=== PATIENT | female | born 1980 | race Caucasian/White ===

== ENCOUNTER 2019-12-01 07:49 | Outpatient (CLI) | payer OTHER, SELFPAY ==
--- NOTE | ~2019-12-01 | US_ITS ---
EXAMINATION: US abdomen complete DATE: 12/01/2019 09:46 INDICATION: Unspecified epigastric pain TECHNIQUE: Multiple grayscale and Doppler ultrasound images of the abdomen were obtained. COMPARISON: 08/02/2018 FINDINGS: The head, body, and tail of the pancreas are normal. The liver is normal with normal echog enicity and echotexture. No surface nodularity. Normal hepatopetal flow in the main portal vein. The gallbladder is normal with no abnormal wall thickening, pericholecystic fluid or stones. The normal c ommon bile duct measures 4 mm. There was no sonographic Martinez sign. The visualized portions of the a aditya and inferior vena cava are normal. The right kidney measures 9.8 x 5.5 x 5.2 cm. The left kidney measures 9.2 x 4.1 x 5.9 cm and contain s a 9 mm cyst in the upper pole. The kidneys demonstrate normal parenchymal echogenicity. There is no hydronephrosis. The spleen is normal in appearance and measures 10 cm. IMPRESSION: 1. No sonographic correlate for the patient's symptoms. Reviewed, dictated and finalized at location A.
== END 2019-12-01 07:50 | disposition home or self-care (01) ==
LOC: ANHIMG 07:54
PROVIDERS: PCP Family Medicine; Visit Provider Nurse Practitioner Family
DX: R10.9 Unspecified abdominal pain (principal)
CPT/HCPCS: 76700

== ENCOUNTER 2019-12-03 17:26 | Outpatient (CLI) | payer OTHER, SELFPAY ==
--- NOTE | ~2019-12-03 | CT_ITS ---
EXAMINATION: CT abdomen pelvis wo con EXAM DATE: 12/03/2019 18:13 INDICATION: Hematuria, flank pain. TECHNIQUE: Spiral CT of the abdomen and pelvis was performed without contrast. Axial, coronal and s agittal images were reviewed. The dose-length product (DLP) for this examination was 201.99 mGy-cm. The exposure was tailored according to patient size (auto mA exposure control), and iterative recons truction (ASIR) was used as additional dose reduction technique. Comparison is made to prior examinat ion from 08/22/2017. FINDINGS: The liver, spleen, adrenal glands and pancreas are unremarkable. Gallbladder is unremarkab le. No biliary obstruction. There is no nephrolithiasis or hydronephrosis. The uterus and ovaries are unremarkable, no adnexal mass. The bladder is undistended at time of imaging. There is no retr operitoneal or pelvic lymphadenopathy. The appendix is normal. The stomach and small bowel are unremarkable. There is expected amount of c olonic stool. No free intraperitoneal gas. The heart is normal in size. There are no pericardial or pleural effusions. The lung bases are unremarkable. The bones are unremarkable. IMPRESSION: 1. No acute intra-abdominal findings. Reviewed, dictated and finalized at location A.
== END 2019-12-03 17:27 | disposition home or self-care (01) ==
LOC: ANHIMG 17:28
PROVIDERS: PCP Family Medicine; Visit Provider Family Medicine
DX: R10.9 Unspecified abdominal pain (principal); R31.9 Hematuria, unspecified
CPT/HCPCS: 74176

== ENCOUNTER → 2020-05-12 15:41 | Outpatient (CLI) | payer OTHER, SELFPAY ==
--- NOTE | ~2020-05-12 | CT_ITS ---
EXAMINATION: CT sinus wo con DATE: 05/12/2020 15:51 INDICATION: Chronic sinusitis TECHNIQUE: Computed tomography (CT) of the paranasal sinuses was performed without contrast. Iterativ e reconstruction technique was employed. Exam dose: 297.70 mGy-cm total exam DLP. COMPARISON: None FINDINGS: The nasal septum bows rightward superiorly and leftward inferiorly. Bilateral surgical nasal antral windows. Interlamellar cell of both middle nasal turbinates. The frontal and sphenoid sinuses are clear. There is an opacified posterolateral left ethmoid air juan m l. The left ethmoid sinuses are otherwise unremarkable. There is an up to approximately 1.7 x 2.3 cm polyp or mucous retention cyst at the floor of the right maxillary sinus. There is focal soft tissue swelling of the right maxillary ostium. There is an approximately 9.5 x 15 mm polyp or mucous retention cyst of the upper medial left maxilla ry sinus wall at the left maxillary ostium. There is mild mucoperiosteal thickening in the lower left maxillary sinus. The mastoid air cells are normally developed and aerated. IMPRESSION: Bilateral nasal antral windows Interlamellar cell of both middle nasal turbinates Bilateral maxillary sinus polyps and/or mucous retention cysts, occlusion of maxillary ostium bilater ally Small opacified left ethmoid air cell Reviewed, dictated and finalized at Location A. Reviewed, dictated and finalized at location A. IMPRESSION: Bilateral nasal antral windows Interlamellar cell of both middle nasal turbinates Bilateral maxillary sinus polyps and/or mucous retention cysts, occlusion of ma xillary ostium bilaterally Small opacified left ethmoid air cell
== END ==
PROVIDERS: Visit Provider Otolaryngology
DX: J32.9 Chronic sinusitis, unspecified (principal)
CPT/HCPCS: 70486

== ENCOUNTER 2020-08-07 09:29 | Outpatient (CLI) | payer OTHER, SELFPAY ==
[2020-08-07 10:04] LABS: Basophils Percent Auto 0.4 % (0.2-1.2); Eosinophils Absolute Auto 0.1 K/mm3 (0-0.3); Eosinophils Percent Auto 0.5 % (0-4.4); Hematocrit 45.5 % (37.0-47.0); Hemoglobin 15.3 g/dL (12.0-15.0); Immature Granulocyte Absolute 0.09 K/mm3 (0.00-0.031); Immature Granulocyte Percent A 0.8 % (0-0.5); Lymphocytes Percent Auto 26.4 % (18.3-44.2); Mean Corpuscular HGB Conc 33.6 g/dl (32-36); Mean Corpuscular Hemoglobin 31.3 pg (26-34); Mean Platelet Volume 9.4 fl (7.4-10.4); Monocytes Absolute Auto 0.8 K/mm3 (0.1-0.6); Monocytes Percent Auto 7.7 % (2.6-8.5); Neutrophils Absolute Auto 6.8 K/mm3 (1.3-6.7); Neutrophils Percent Auto 64.2 % (45.5-73.1); Platelet Count Result 264 k/mm3 (150-375); Red Blood Count 4.89 M/mm3 (4.2-5.4); Red Cell Distribution Width 12.3 % (11.5-14.5); White Blood Count 10.6 K/mm3 (4.5-10.0)
[2020-08-07 11:17] LABS: Vitamin D 25 Hydroxy 70.9 ng/mL
== END 2020-08-07 09:30 | disposition home or self-care (01) ==
LOC: ANHLAB 09:34
PROVIDERS: Physician Assistant Medical; PCP Family Medicine; Visit Provider Nurse Practitioner Family
DX: J32.2 Chronic ethmoidal sinusitis (principal); R51.9 Headache, unspecified; E55.9 Vitamin D deficiency, unspecified
CPT/HCPCS: 36415; 82306; 85025

== ENCOUNTER 2020-08-23 12:55 | Outpatient (CLI) | payer OTHER, SELFPAY ==
[2020-08-23 13:11] LABS: Basophils Percent Auto 0.5 % (0.2-1.2); Eosinophils Absolute Auto 0.1 K/mm3 (0-0.3); Eosinophils Percent Auto 1.4 % (0-4.4); Hematocrit 40.8 % (37.0-47.0); Hemoglobin 13.6 g/dL (12.0-15.0); Immature Granulocyte Absolute 0.02 K/mm3 (0.00-0.031); Immature Granulocyte Percent A 0.3 % (0-0.5); Lymphocytes Absolute Auto 2.24 K/mm3 (0.9-3.2); Lymphocytes Percent Auto 33.7 % (18.3-44.2); Mean Corpuscular HGB Conc 33.3 g/dl (32-36); Mean Corpuscular Hemoglobin 30.8 pg (26-34); Mean Corpuscular Volume 92.3 fl (80-100); Mean Platelet Volume 9.3 fl (7.4-10.4); Monocytes Absolute Auto 0.4 K/mm3 (0.1-0.6); Monocytes Percent Auto 6.2 % (2.6-8.5); Neutrophils Absolute Auto 3.9 K/mm3 (1.3-6.7); Neutrophils Percent Auto 57.9 % (45.5-73.1); Platelet Count Result 227 k/mm3 (150-375); Red Blood Count 4.42 M/mm3 (4.2-5.4); Red Cell Distribution Width 12.4 % (11.5-14.5); White Blood Count 6.7 K/mm3 (4.5-10.0)
== END 2020-08-23 12:56 | disposition home or self-care (01) ==
LOC: ANHLAB 12:56
PROVIDERS: PCP Family Medicine; Visit Provider Physician Assistant Medical
DX: D72.829 Elevated white blood cell count, unspecified (principal)
CPT/HCPCS: 36415; 85025

== ENCOUNTER 2021-08-11 16:38 | Emergency (ER) | payer OTHER, SELFPAY ==
[2021-08-11 16:51] VITALS: BP 125/71; PULSE 85; RESP 16; TEMP 36.8; O2SAT 97
--- NOTE | 2021-08-11 18:14 | ED.URI ---
HPI - URI/Sore Throat General Chief Complaint: Upper Respiratory Infection Stated Complaint: Congestion Time Seen by Provider: 08/11/21 18:14 Source: patient, RN notes reviewed and old records reviewed Mode of arrival: ambulatory Limitations: no limitations History of Present Illness HPI Narrative: 40 year old female who presents to [facility] care with complaints of sore throat with spots in her throat, sinus problems and cough. Patient reports that she had virtual visit with doctors office yesterday and they ordered some cough pills and a steroid back. Patient states that she has not had a fever, chills or sweats, no body aches. Patient has had feelings of sinus congestion and drainage for 1.5 weeks with sore throat starting 3 days ago with spots noted to her throat yesterday. Patient has had Covid and influenza vaccines. MD elicited complaint: cough, sore throat, rhinorrhea, nasal congestion and sinus pain Pertinent past history: sinusitis and seasonal allergies Related Data Home Medications Medication Instructions Recorded Confirmed baclofen 10 mg PO DAILY 08/11/21 08/11/21 benzonatate 100 mg PO DIRECTED 08/11/21 08/11/21 methylprednisolone 4 mg PO DIRECTED 08/11/21 08/11/21 milnacipran [Savella] 1 ea PO DIRECTED 08/11/21 08/11/21 montelukast 10 mg PO DAILY 08/11/21 08/11/21 Allergies Allergy/AdvReac Type Severity Reaction Status Date / Time celecoxib Allergy Unknown Unknown Verified 08/11/21 17:39 codeine Allergy Unknown Unknown Verified 08/11/21 17:39 nabumetone Allergy Unknown Unknown Verified 08/11/21 17:39 Review of Systems Review of Systems: CONSTITUTIONAL: Denies fever, chills, or sweats. EYES: Denies visual changes, redness, or discharge. ENT: Positive rhinorrhea, congestion, sore throat, no otalgia. CARDIOVASCULAR: Denies chest pain, palpitations, or edema. RESPIRATORY: Positive for intermittent cough no dyspnea. GASTROINTESTINAL: Denies abdominal pain, nausea, vomiting, or diarrhea. GENITOURINARY: Denies dysuria or hematuria. SKIN: Denies rash or itching. MUSCULOSKELETAL: Denies back pain, joint pain, or myalgia. NEUROLOGIC: Denies headache, numbness, or weakness. PSYCHIATRIC: Positive for history anxiety or depression. All systems reviewed & are unremarkable except as noted in HPI and below PMFSH Past Medical History Medical History Acute cystitis without hematuria Acute UTI Anxiety Atypical chest pain B12 deficiency Bacterial vaginosis Bartholin gland cyst Bilateral ovarian cysts Brittle hair Cervical paraspinal muscle spasm Cervicalgia Change in color of pigmented skin lesion Chest pain Chronic Jem-Graham virus infection Chronic fatigue Chronic left shoulder pain Chronic left-sided thoracic back pain Current mild episode of major depressive disorder without prior episode Cyst of left kidney Decreased dorsalis pedis pulse Diffuse abdominal pain Dizziness Ectopic 2002 Elevated liver function tests Encounter for gynecological examination (general) (routine) without abnormal findings Encounter for screening for malignant neoplasm of cervix Epigastric abdominal pain Facial swelling Fever and chills Hot flashes Impacted ear wax Influenza Intractable migraine without aura and with status migrainosus Labial cyst Left arm pain Left ear pain Left hip pain Left leg numbness Low TSH level Lumbar back pain with radiculopathy affecting lower extremity Lump of breast Lymphadenopathy of head and neck region Mid back pain Mucous retention cyst Other chronic pain Other headache syndrome Other specified bacterial agents as the cause of diseases classified elsewhere Palpitations Rib pain on left side Sebaceous cyst Skin tag Slow transit constipation Spinal instability, thoracic Suspected exposure to mold Thoracic outlet syndrome of left thoracic outlet Thoracic outlet syndrome of left thoracic outlet TMJ (temporomandibular joint sy
== END 2021-08-11 18:48 | disposition home or self-care (01) ==
PROVIDERS: Emergency Provider Registered Nurse
DX: J02.9 Acute pharyngitis, unspecified (principal); J06.9 Acute upper respiratory infection, unspecified; F17.210 Nicotine dependence, cigarettes, uncomplicated
CPT/HCPCS: 81003; 87081; 87880; 99213; G0463

== ENCOUNTER 2022-04-21 10:46 | Emergency (ER) | payer OTHER, SELFPAY ==
--- NOTE | ~2022-04-21 | XR_ITS ---
EXAMINATION: XR ankle RT min 3V, XR foot RT min 3V DATE: 04/21/2022 11:07 INDICATION: Right ankle injury with lateral right ankle and plantar foot right foot pain. TECHNIQUE: 1. Anteroposterior, mortise, additional oblique and lateral view of the right ankle were obtained. 2. Dorsoplantar, two oblique and lateral views of the right foot were obtained. COMPARISON: None. FINDINGS: Alignment of the right foot and ankle is normal. No fracture or osteochondral lesion. Joint spaces ar e well maintained. No ankle joint effusion. The soft tissues are unremarkable. IMPRESSION: 1. Negative right foot and ankle radiographs. Reviewed, dictated and finalized at location A. IMPRESSION: 1. Negative right foot and ankle radiographs.
[2022-04-21 10:55] VITALS: BP 136/85; PULSE 87; RESP 16; TEMP 36.7; O2SAT 100
--- NOTE | 2022-04-21 11:23 | ED.LOWEXIN ---
HPI - Extremity Injury (Lower) General Chief Complaint: Extremity Injury, Lower Stated Complaint: rt foot pain Time Seen by Provider: 04/21/22 11:23 Source: patient, RN notes reviewed and old records reviewed Mode of arrival: ambulatory Limitations: no limitations History of Present Illness HPI Narrative: 41-year-old female who presents to [facility] care with complaints of right foot pain and right ankle discomfort since Tuesday when she slipped in yard and rolled her ankle and foot inward. Patient reports discomfort lateral and medial aspect of her right ankle radiating to plantar aspect of her foot and also some heel discomfort.Patient denies any numbness or tingling to her right foot or toes. Patient has been wearing an yeny wrap to her foot which she states she thinks has helped along with application of ice pack. MD complaint: ankle injury and other (foot) Treatments prior to arrival: cold therapy and other (yeny) Related Data Home Medications Medication Instructions Recorded Confirmed montelukast 10 mg tablet 10 mg PO DAILY 08/11/21 04/21/22 duloxetine 30 mg capsule,delayed 30 mg PO DAILY 04/21/22 04/21/22 release Allergies Allergy/AdvReac Type Severity Reaction Status Date / Time celecoxib Allergy Unknown Unknown Verified 04/21/22 11:21 codeine Allergy Unknown Unknown Verified 04/21/22 11:21 nabumetone Allergy Unknown Unknown Verified 04/21/22 11:21 Review of Systems Review of Systems: CONSTITUTIONAL: Denies fever, chills, or sweats. EYES: Denies visual changes, redness, or discharge. ENT: Denies rhinorrhea, congestion, sore throat, or otalgia. CARDIOVASCULAR: Denies chest pain, palpitations, or edema. RESPIRATORY: Denies cough or dyspnea. GASTROINTESTINAL: Denies abdominal pain, nausea, vomiting, or diarrhea. GENITOURINARY: Denies dysuria or hematuria. SKIN: Denies rash or itching. MUSCULOSKELETAL: Denies back pain, positive right foot and ankle joint pain, or myalgia. NEUROLOGIC: Denies headache, numbness, or weakness. PSYCHIATRIC: Denies anxiety or depression. All systems reviewed & are unremarkable except as noted in HPI and below PMFSH Past Medical History Medical History Acute cystitis without hematuria Acute UTI Anxiety Atypical chest pain B12 deficiency Bacterial vaginosis Bartholin gland cyst Bilateral ovarian cysts Brittle hair Cervical paraspinal muscle spasm Cervicalgia Change in color of pigmented skin lesion Chest pain Chronic Jem-Graham virus infection Chronic fatigue Chronic left shoulder pain Chronic left-sided thoracic back pain Current mild episode of major depressive disorder without prior episode Cyst of left kidney Decreased dorsalis pedis pulse Diffuse abdominal pain Dizziness Ectopic 2002 Elevated liver function tests Encounter for gynecological examination (general) (routine) without abnormal findings Encounter for screening for malignant neoplasm of cervix Epigastric abdominal pain Facial swelling Fever and chills Hot flashes Impacted ear wax Influenza Intractable migraine without aura and with status migrainosus Labial cyst Left arm pain Left ear pain Left hip pain Left leg numbness Low TSH level Lumbar back pain with radiculopathy affecting lower extremity Lump of breast Lymphadenopathy of head and neck region Mid back pain Mucous retention cyst Other chronic pain Other headache syndrome Other specified bacterial agents as the cause of diseases classified elsewhere Palpitations Rib pain on left side Sebaceous cyst Skin tag Slow transit constipation Spinal instability, thoracic Suspected exposure to mold Thoracic outlet syndrome of left thoracic outlet Thoracic outlet syndrome of left thoracic outlet TMJ (temporomandibular joint syndrome) Tooth pain TOS (thoracic outlet syndrome) 2020 Unspecified ovarian cyst, left side URI, acute Vaginal delivery x2 01/22/2012, 08/18/2007 Viral warts Vulvar
== END 2022-04-21 11:45 | disposition home or self-care (01) ==
PROVIDERS: Emergency Provider Registered Nurse
DX: S93.401A Sprain of unspecified ligament of right ankle, initial encounter (principal); S93.601A Unspecified sprain of right foot, initial encounter; S96.911A Strain of unspecified muscle and tendon at ankle and foot level, right foot, initial encounter; X50.9XXA Other and unspecified overexertion or strenuous movements or postures, initial encounter; F17.210 Nicotine dependence, cigarettes, uncomplicated
CPT/HCPCS: 73610; 73630; 99213; G0463

== ENCOUNTER 2022-08-02 08:07 | Emergency (ER) | payer OTHER, SELFPAY ==
--- NOTE | 2022-08-02 08:10 | ED.URI ---
HPI - URI/Sore Throat General Stated Complaint: Cough/Wheezing Time Seen by Provider: 08/02/22 08:17 Source: patient, RN notes reviewed and old records reviewed Mode of arrival: ambulatory Limitations: no limitations History of Present Illness HPI Narrative: 41-year-old female presents to the [facility] with complaints of cough and wheezing S started a couple of days ago. Patient states that whenever she gets sinus infection sometimes turns into a bronchitis. Denies fevers, chest pain. Patient states that she uses Flonase and takes Zyrtec daily. Just finished Augmentin yesterday. Related Data Home Medications Medication Instructions Recorded Confirmed montelukast 10 mg tablet 10 mg PO DAILY 08/11/21 08/02/22 duloxetine 30 mg capsule,delayed 30 mg PO DAILY 04/21/22 08/02/22 release fluticasone propionate 50 2 spray intranasal DAILY 08/02/22 08/02/22 mcg/actuation nasal spray,suspension phentermine 37.5 mg capsule 37.5 mg PO DAILY 08/02/22 08/02/22 tizanidine 4 mg tablet 4 mg PO DAILY 08/02/22 08/02/22 Allergies Allergy/AdvReac Type Severity Reaction Status Date / Time celecoxib Allergy Unknown Unknown Verified 08/02/22 08:11 codeine Allergy Unknown Unknown Verified 08/02/22 08:11 nabumetone Allergy Unknown Unknown Verified 08/02/22 08:11 Review of Systems Review of Systems: All systems reviewed & are unremarkable except as noted in HPI and below Constitutional: Constitutional: Reports no additional constitutional complaints Eyes: Eyes: Reports no additional eye complaints ENT: Reports system reviewed and no additional complaints, except as documented Cardiovascular: Cardiovascular: Reports no additional cardiovascular complaints, Denies chest pain and Denies dyspnea Respiratory: Respiratory: Reports as per HPI, Denies chest congestion, Reports cough, Denies dyspnea and Reports wheezing Gastrointestinal: Gastrointestinal: Reports no additional gastrointestinal complaints, Denies abdominal pain, Denies nausea and Denies vomiting Musculoskeletal: Musculoskeletal: Reports no additional musculoskeletal complaints Integumentary/Breasts: Skin/Breast: Reports system reviewed and no additional complaints, except as docu Neurologic: Reports system reviewed and no additional complaints, except as documented Psychiatric: Psychiatric: Reports no additional psychiatric complaints Allergic/Immunologic: Allergic/Immunologic: Reports no additional allergic/immunologic complaints PMFSH Past Medical History Medical History Acute cystitis without hematuria Acute UTI Anxiety Atypical chest pain B12 deficiency Bacterial vaginosis Bartholin gland cyst Bilateral ovarian cysts Brittle hair Cervical paraspinal muscle spasm Cervicalgia Change in color of pigmented skin lesion Chest pain Chronic Jem-Graham virus infection Chronic fatigue Chronic left shoulder pain Chronic left-sided thoracic back pain Current mild episode of major depressive disorder without prior episode Cyst of left kidney Decreased dorsalis pedis pulse Diffuse abdominal pain Dizziness Ectopic 2002 Elevated liver function tests Encounter for gynecological examination (general) (routine) without abnormal findings Encounter for screening for malignant neoplasm of cervix Epigastric abdominal pain Facial swelling Fever and chills Hot flashes Impacted ear wax Influenza Intractable migraine without aura and with status migrainosus Labial cyst Left arm pain Left ear pain Left hip pain Left leg numbness Low TSH level Lumbar back pain with radiculopathy affecting lower extremity Lump of breast Lymphadenopathy of head and neck region Mid back pain Mucous retention cyst Other chronic pain Other headache syndrome Other specified bacterial agents as the cause of diseases classified elsewhere Palpitations Rib pain on left side Sebaceous cyst Skin tag Slow transit constipation Spi
[2022-08-02 08:13] VITALS: BP 130/87; PULSE 84; RESP 16; TEMP 36.3; O2SAT 100
== END 2022-08-02 08:33 | disposition home or self-care (01) ==
PROVIDERS: Emergency Provider Nurse Practitioner
DX: J40 Bronchitis, not specified as acute or chronic (principal); F17.210 Nicotine dependence, cigarettes, uncomplicated
CPT/HCPCS: 99213; G0463

== ENCOUNTER 2022-10-23 08:16 | Emergency (ER) | payer OTHER, SELFPAY ==
[2022-10-23 08:25] VITALS: BP 132/83; PULSE 83; RESP 12; TEMP 36.9; O2SAT 99
--- NOTE | 2022-10-23 08:41 | ED.URI ---
HPI - URI/Sore Throat General Chief Complaint: Upper Respiratory Infection Stated Complaint: Sinus Time Seen by Provider: 10/23/22 08:41 Source: patient Mode of arrival: ambulatory Limitations: no limitations History of Present Illness HPI Narrative: Patient is a 41-year-old female that presents with sinus congestion, ear pain, cough for 3 weeks. patient states she was seen by her primary but did not get antibiotics. has tried Flonase and Zyrtec with no relief Related Data Home Medications Medication Instructions Recorded Confirmed montelukast 10 mg tablet 10 mg PO DAILY 08/11/21 10/23/22 fluticasone propionate 50 2 spray intranasal DAILY 08/02/22 10/23/22 mcg/actuation nasal spray,suspension tizanidine 4 mg tablet 4 mg PO DAILY 08/02/22 10/23/22 Allergies Allergy/AdvReac Type Severity Reaction Status Date / Time celecoxib Allergy Unknown Unknown Verified 10/23/22 08:34 codeine Allergy Unknown Unknown Verified 10/23/22 08:34 nabumetone Allergy Unknown Unknown Verified 10/23/22 08:34 Review of Systems Review of Systems: All systems reviewed & are unremarkable except as noted in HPI and below Constitutional: Constitutional: Denies body ache(s), Denies fever(s), Denies headache(s), Denies malaise and Denies weakness Eyes: Eyes: Denies loss of vision ENT: Denies headache(s), Reports nasal congestion, Denies sinus pain and Denies sore throat Cardiovascular: Cardiovascular: Denies chest pain, Denies irregular heart rhythm and Denies dyspnea Respiratory: Respiratory: Reports cough and Denies dyspnea Gastrointestinal: Gastrointestinal: Denies abdominal pain, Denies melena, Denies hematochezia, Denies diarrhea, Denies nausea and Denies vomiting Musculoskeletal: Musculoskeletal: Denies back pain, Denies myalgias and Denies arthralgias Integumentary/Breasts: Skin/Breast: Denies pruritus and Denies rash Neurologic: Denies headache(s), Denies loss of vision and Denies weakness Psychiatric: Psychiatric: Reports no additional psychiatric complaints PMFSH Past Medical History Medical History Acute cystitis without hematuria Acute UTI Anxiety Atypical chest pain B12 deficiency Bacterial vaginosis Bartholin gland cyst Bilateral ovarian cysts Brittle hair Cervical paraspinal muscle spasm Cervicalgia Change in color of pigmented skin lesion Chest pain Chronic Jem-Graham virus infection Chronic fatigue Chronic left shoulder pain Chronic left-sided thoracic back pain Current mild episode of major depressive disorder without prior episode Cyst of left kidney Decreased dorsalis pedis pulse Diffuse abdominal pain Dizziness Ectopic 2002 Elevated liver function tests Encounter for gynecological examination (general) (routine) without abnormal findings Encounter for screening for malignant neoplasm of cervix Epigastric abdominal pain Facial swelling Fever and chills Hot flashes Impacted ear wax Influenza Intractable migraine without aura and with status migrainosus Labial cyst Left arm pain Left ear pain Left hip pain Left leg numbness Low TSH level Lumbar back pain with radiculopathy affecting lower extremity Lump of breast Lymphadenopathy of head and neck region Mid back pain Mucous retention cyst Other chronic pain Other headache syndrome Other specified bacterial agents as the cause of diseases classified elsewhere Palpitations Rib pain on left side Sebaceous cyst Skin tag Slow transit constipation Spinal instability, thoracic Suspected exposure to mold Thoracic outlet syndrome of left thoracic outlet Thoracic outlet syndrome of left thoracic outlet TMJ (temporomandibular joint syndrome) Tooth pain TOS (thoracic outlet syndrome) 2019 Unspecified ovarian cyst, left side URI, acute Vaginal delivery x2 01/22/2012, 08/18/2007 Viral warts Vulvar itching Surgical History Surgical History (Reviewed 08/02/22 @ 08:12 by Maddie Drake
== END 2022-10-23 09:28 | disposition home or self-care (01) ==
PROVIDERS: Emergency Provider Nurse Practitioner Family
DX: J06.9 Acute upper respiratory infection, unspecified (principal); R05.9 Cough, unspecified; G54.0 Brachial plexus disorders; F17.210 Nicotine dependence, cigarettes, uncomplicated
CPT/HCPCS: 99213; G0463

== ENCOUNTER 2022-10-30 09:45 | Emergency (ER) | payer OTHER, SELFPAY ==
[2022-10-30 09:52] VITALS: BP 124/70; PULSE 95; RESP 16; TEMP 37; O2SAT 99
--- NOTE | 2022-10-30 09:58 | ED.URI ---
HPI - URI/Sore Throat General Chief Complaint: Upper Respiratory Infection Stated Complaint: uri Time Seen by Provider: 10/30/22 10:28 Source: patient and RN notes reviewed Mode of arrival: ambulatory Limitations: no limitations History of Present Illness HPI Narrative: 41-year-old female presents concern for face pressure, jaw pressure, ear pressure, pressure at the back of her head. Reports she is being currently treated with antibiotic for sinus infection, she is taking that as directed. Reports she cleaned wax out of her ears but continues to have pressure in them. Reports she is doing sinus rinses at home without much relief MD elicited complaint: nasal congestion and sinus pain Related Data Home Medications Medication Instructions Recorded Confirmed montelukast 10 mg tablet 10 mg PO DAILY 08/11/21 10/23/22 fluticasone propionate 50 2 spray intranasal DAILY 08/02/22 10/23/22 mcg/actuation nasal spray,suspension tizanidine 4 mg tablet 4 mg PO DAILY 08/02/22 10/23/22 Allergies Allergy/AdvReac Type Severity Reaction Status Date / Time celecoxib Allergy Unknown Unknown Verified 10/30/22 10:07 codeine Allergy Unknown Unknown Verified 10/30/22 10:07 nabumetone Allergy Unknown Unknown Verified 10/30/22 10:07 Review of Systems Review of Systems: CONSTITUTIONAL: Denies malaise, chills, sweats, or fever. EYES: Denies visual changes, redness, or discharge. ENT: Reports rhinorrhea, congestion, sinus pain, otalgia CARDIOVASCULAR: Denies chest pain, palpitations, or edema. RESPIRATORY: Denies cough. Denies dyspnea. GASTROINTESTINAL: Denies abdominal pain, nausea, vomiting, diarrhea SKIN: Denies rash or itching. MUSCULOSKELETAL: Denies myalgia. NEUROLOGIC: Reports headache. All systems reviewed & are unremarkable except as noted in HPI and below PMFSH Past Medical History Medical History Acute cystitis without hematuria Acute UTI Anxiety Atypical chest pain B12 deficiency Bacterial vaginosis Bartholin gland cyst Bilateral ovarian cysts Brittle hair Cervical paraspinal muscle spasm Cervicalgia Change in color of pigmented skin lesion Chest pain Chronic Jem-Graham virus infection Chronic fatigue Chronic left shoulder pain Chronic left-sided thoracic back pain Current mild episode of major depressive disorder without prior episode Cyst of left kidney Decreased dorsalis pedis pulse Diffuse abdominal pain Dizziness Ectopic 2003 Elevated liver function tests Encounter for gynecological examination (general) (routine) without abnormal findings Encounter for screening for malignant neoplasm of cervix Epigastric abdominal pain Facial swelling Fever and chills Hot flashes Impacted ear wax Influenza Intractable migraine without aura and with status migrainosus Labial cyst Left arm pain Left ear pain Left hip pain Left leg numbness Low TSH level Lumbar back pain with radiculopathy affecting lower extremity Lump of breast Lymphadenopathy of head and neck region Mid back pain Mucous retention cyst Other chronic pain Other headache syndrome Other specified bacterial agents as the cause of diseases classified elsewhere Palpitations Rib pain on left side Sebaceous cyst Skin tag Slow transit constipation Spinal instability, thoracic Suspected exposure to mold Thoracic outlet syndrome of left thoracic outlet Thoracic outlet syndrome of left thoracic outlet TMJ (temporomandibular joint syndrome) Tooth pain TOS (thoracic outlet syndrome) 2020 Unspecified ovarian cyst, left side URI, acute Vaginal delivery x2 01/22/2012, 08/18/2007 Viral warts Vulvar itching Surgical History Surgical History H/O tubal ligation 2012 History of colposcopy 2013 History of endometrial ablation 2015 History of nasal surgery x2 Hx of appendectomy 2005 Family History Family History (Reviewed
== END 2022-10-30 10:45 | disposition home or self-care (01) ==
PROVIDERS: Emergency Provider Nurse Practitioner
DX: J32.9 Chronic sinusitis, unspecified (principal); F17.210 Nicotine dependence, cigarettes, uncomplicated
CPT/HCPCS: 99213; G0463

== ENCOUNTER 2023-09-28 08:15 | Emergency (ER) | payer MEDICARE, MEDICAID, SELFPAY ==
--- NOTE | 2023-09-28 08:29 | ED.GENADULT ---
HPI - General Adult General Chief complaint: Upper Respiratory Infection Stated complaint: Sinus Source: patient, RN notes reviewed and old records reviewed Mode of arrival: ambulatory Limitations: no limitations History of Present Illness HPI narrative: 42-year-old female presents to [facility] with complaint of cough, congestion, wheezing, ear pressure that started 3 weeks ago. Patient seen in another urgent care and prescribed doxycycline and prednisone tablets and Tessalon. patient states has taken 2 prednisone tablets but is unable to swallow the doxycycline. Id patient was unsure what Tessalon Perles for so she did not take those. Patient states has had surgeon and is unable to swallow large pills gently and Medrol Dosepak and Zithromax Related Data Home Medications Medication Instructions Recorded Confirmed Zyrtec 09/28/23 alprazolam 0.5 mg tablet mg 09/28/23 sucralfate 100 mg/mL oral 09/28/23 suspension Allergies Allergy/AdvReac Type Severity Reaction Status Date / Time celecoxib Allergy Unknown Unknown Verified 09/28/23 08:30 codeine Allergy Unknown Unknown Verified 09/28/23 08:30 nabumetone Allergy Unknown Unknown Verified 09/28/23 08:30 Review of Systems Constitutional: Constitutional: Reports no additional constitutional complaints, Denies body ache(s), Denies chills, Denies fatigue, Denies fever(s) and Denies headache(s) Eyes: Eyes: Reports no additional eye complaints and Denies blurry vision ENT: Reports system reviewed and no additional complaints, except as documented, Denies vertigo, Denies dizziness, Denies ear discharge, Reports otalgia, Denies facial pain, Denies headache(s), Reports nasal congestion, Reports nasal discharge, Reports sinus pain, Reports sinus pressure and Denies sore throat Cardiovascular: Cardiovascular: Reports no additional cardiovascular complaints, Denies chest pain, Denies chest pain at rest, Denies rapid heart rate and Denies dyspnea Respiratory: Respiratory: Reports no additional respiratory complaints, Reports chest congestion, Reports cough, Denies pain on inspiration, Denies pain with cough, Denies dyspnea and Reports wheezing Gastrointestinal: Gastrointestinal: Denies abdominal pain, Denies diarrhea, Denies nausea and Denies vomiting Integumentary/Breasts: Skin/Breast: Denies rash Neurologic: Reports system reviewed and no additional complaints, except as documented, Denies vertigo, Denies dizziness and Denies headache(s) Endocrine: Endocrine: Denies fatigue [facility] Past Medical History Medical History Acute cystitis without hematuria Acute UTI Anxiety Atypical chest pain B12 deficiency Bacterial vaginosis Bartholin gland cyst Bilateral ovarian cysts Brittle hair Cervical paraspinal muscle spasm Cervicalgia Change in color of pigmented skin lesion Chest pain Chronic Jem-Graham virus infection Chronic fatigue Chronic left shoulder pain Chronic left-sided thoracic back pain Current mild episode of major depressive disorder without prior episode Cyst of left kidney Decreased dorsalis pedis pulse Diffuse abdominal pain Dizziness Ectopic 2002 Elevated liver function tests Encounter for gynecological examination (general) (routine) without abnormal findings Encounter for screening for malignant neoplasm of cervix Epigastric abdominal pain Facial swelling Fever and chills Hot flashes Impacted ear wax Influenza Intractable migraine without aura and with status migrainosus Labial cyst Left arm pain Left ear pain Left hip pain Left leg numbness Low TSH level Lumbar back pain with radiculopathy affecting lower extremity Lump of breast Lymphadenopathy of head and neck region Mid back pain Mucous retention cyst Other chronic pain Other headache syndrome Other specified bacterial agents as the cause of diseases classified elsewhere Palpitations Rib pain on left side Sebaceous cyst
[2023-09-28 08:30] VITALS: BP 120/74; PULSE 74; RESP 16; TEMP 36.8; O2SAT 100
== END 2023-09-28 08:58 | disposition home or self-care (01) ==
PROVIDERS: Emergency Provider Registered Nurse
DX: J06.9 Acute upper respiratory infection, unspecified (principal); F17.210 Nicotine dependence, cigarettes, uncomplicated
CPT/HCPCS: 99213; G0463

== ENCOUNTER 2024-05-01 13:23 | Outpatient (NON) | payer MEDICARE, SELFPAY | END 2024-05-01 13:24 | disposition home or self-care (01) | DX: K11.6 Mucocele of salivary gland (principal) | CPT/HCPCS: 88305 ==